=== PATIENT | female | born 1985 | race Caucasian/White ===

== ENCOUNTER 2016-12-21 20:32 | Emergency (ER) | payer OTHER ==
[~2016-12-21] VITALS: Ht 160 cm; Wt 50.0 kg
[2016-12-21 20:51] VITALS: BP 119/78; PULSE 78; RESP 16; O2SAT 96
--- NOTE | 2016-12-21 22:44 | ED.REPORT ---
HPI-General Illness Date of Service Dec 21, 2016 ED Provider: Ivan Archibald MD The patient is a 31 year old female who [facility] requesting help with side effects of heroin withdrawal. Associated symptoms include nausea, cramped legs, and diaphoresis. She denies SOB or difficulty breathing. Pt confirms that her symptoms feel similar to previous withdrawal symptoms she has experienced. She states that a staff member at crisis recommended that she get put on Suboxone, but the pt states that she feels fine and just wants to go back to crisis at this time. Her symptoms are relatively mild and consistent with her previous heroin withdrawal symptoms. No other complaints at this time. Nursing Notes Stated Complaint: WITHDRAWALS Chief Complaint: Substance Abuse Nursing Notes Reviewed: Yes Allergies: Coded Allergies: No Known Allergies (Unverified , 12/21/16) General Time Seen by MD: 22:42 Chief Complaint Other (nausea) Hx Obtained From: Patient Arrived By: Walk-in Sudden in Onset?: Yes Onset Occurred: 5 - 8 hours ago Symptom Duration: Since onset Review of Systems Full Review of Systems Constitutional: Denies: Chills, Fever Respiratory: Denies: Shortness of breath GI: Reports: Nausea Musculoskeletal: Reports: Extremity pain ("cramped legs") Skin: Reports Diaphoresis Neurologic: Denies: Change LOC Complete sys rev & neg: except as marked. Physical Exam Nursing note and vitals reviewed. Constitutional: Well-developed, well-nourished. Not diaphoretic. Head: Normocephalic and atraumatic. Mouth/Throat: Oropharynx is clear and moist. No oropharyngeal exudate. Eyes: EOM are normal. Pupils are equal, round, and reactive to light. Neck: Supple, no tracheal deviation. Cardiovascular: Normal rate, regular rhythm. Equal and intact distal pulses throughout. Pulmonary/Chest: Effort normal and breath sounds normal. No respiratory distress. Abdominal: Soft. No distension. There is no tenderness, rebound, or guarding. Bowel sounds present Musculoskeletal: Range of motion grossly intact, moving all extremities. No edema or tenderness appreciated. Neurological: AOx3. Grossly nonfocal exam. Strength and sensation intact and equal to bilateral upper and lower extremities. Skin: Warm and dry, no rashes or pallor appreciated. Psychiatric: Appropriate mood and affect. Behavior appears normal. Vital Signs Vital Signs Date Time Temp Pulse Resp B/P Pulse Ox O2 Delivery O2 Flow Rate FiO2 12/21/16 20:51 36.9 78 16 119/78 96 Room Air Initial VS: Reviewed Re-Eval/Medical Decision Med Decision/Clinical Course Well-appearing 31-year-old female presenting to the ED for evaluation of symptoms relating to heroin withdrawal. Patient states that she has withdrawn from heroin in the past and that this is similar, however not as severe as previous. She has a normal examination here in the ED. She would like to be discharged and already has a prescription for clonidine. No psychiatric complaints. Plan discharge with careful return precautions, PCP follow-up. Counseled Regarding: Diagnosis, Lab results, Need for follow-up, When/why to return to ED Discharge & Departure Primary Impression: Heroin withdrawal Disposition: Home Discharge Condition All VS Reviewed: Yes Condition: Stable Patient Instructions: Opioid Withdrawal (ED) Additional Instructions: Thank you for entrusting us with your care today.. Follow up with your primary care physician in the next 1-2 days. Return to the Emergency Department if you experience any new or worsening symptoms. Congratulations on your sobriety and good luck with your recovery! Referrals: [facility] (PCP) [facility] Scribe Attestation Portion of this note were transcribed by Sarah Horton. I, Dr. Archibald, personally performed the history, physical exam, and medical decision-making: I reviewed and confirmed the accuracy for the information in the transcribed note. Signed by: ofelia Day, 12/21/16 [id number] copies to: [facility] Ivan Archibald MD Dec 21, 2016 22:44 Sarah Horton Dec 21, 2016 23:29
== END 2016-12-21 23:56 | disposition home or self-care (01) ==
LOC: SED 20:32
DX: F11.23 Opioid dependence with withdrawal (principal); R25.2 Cramp and spasm; R61 Generalized hyperhidrosis